=== PATIENT | female | born 1985 | race Caucasian/White ===

== ENCOUNTER 2017-01-04 19:15 | Emergency (ER) | payer OTHER ==
[2017-01-04] MEDS ORDERED: MORPHINE SULFATE 10 MG/ML INJ IV ONE (19:34)
[2017-01-04] MEDS ORDERED: ONDANSETRON HCL INJ/PF 4 MG/2 ML SDV IV ONE (19:34)
--- NOTE | 2017-01-04 19:41 | ER Document Report ---
ED GI/ - General Chief Complaint: Abdominal Pain Stated Complaint: ABDOMINAL PAIN Mode of Arrival: Medic Information source: Patient - HPI Patient complains to provider of: Abdominal pain Quality of pain: Sharp Severity at maximum: Severe Severity in ED: Moderate Location: Epigastric Vaginal bleeding (Compared to normal period): None Associated symptoms: Radiates to back, Sweaty. denies: Blood in stool, Chest pain, Chills, Constipation, Diarrhea, Dizzy, Dysuria, Fever, Hematuria, Nausea, Shortness of breath, Syncope, Urinary hesitancy, Urinary frequency, Urinary retention, Urinary urgency, Vaginal discharge, Vomiting Exacerbated by: Denies Relieved by: Denies Notes: 01/04/17 19:37 THE PT HAS A HX OF CHOLEYCYSTECTOMY AND GASTRIC BYPASS. SHE IS ON DEPO AND HAS NOT HAD A MENSES FOR 3 MONTHS. SHE STATES THAT SHE HAD SUDDEN ONSET EPIGASTRIC PAIN JUST PRIOR TO ARRIVAL. NO CP/SOB. SHE STATES THAT THE PAIN HAS IMPROVED NOW , BUT IS STILL PRESENT. THE PAIN IS IN HER EPIGASTRIC AREA AND RADIATES INTO HER BACK. NO URINARY SYMPTOMS. NO FEVER, NO N/V/D, NO VAGINAL BLEEDING OR D/C. SHE DENIES A HX OF HTN, HIGH CHOLESTEROL, DM, CAD, DRUG USE, FAMILY HX OF CAD AT A YOUNG AGE. SHE HAS A HX OF HEMOCHROMOTOSIS. SHE IS A SMOKER. SHE DENIES N/T , WEAKNESS. SHE HAS NO OTHER COMPLAINTS AT THIS TIME. - Related Data Allergies/Adverse Reactions: pseudoephedrine HCl [From Sudafed] Allergy (Verified 02/26/13 08:30) Past Medical History - Social History Smoking Status: Unknown if Ever Smoked Family History: Reviewed & Not Pertinent Renal/ Medical History: Reports: Hx Kidney Stones Infectious Medical History: Denies: Hx MRSA Past Surgical History: Reports: Hx Cholecystectomy, Hx Gastric Bypass Surgery - Immunizations Immunizations up to date: Yes Hx Diphtheria, Pertussis, Tetanus Vaccination: No - 11/19/12 Review of Systems - Review of Systems -: Yes All other systems reviewed and negative Physical Exam - General General appearance: Appears well, Alert In distress: None - HEENT Head: Normocephalic Eyes: Normal Conjunctiva: Normal Ears: Normal Mucous membranes: Normal Neck: Normal. No: Meningismus - Respiratory Respiratory status: No respiratory distress Breath sounds: Normal. No: Rhonchi, Stridor, Wheezing - Cardiovascular Rhythm: Regular Heart sounds: Normal auscultation Murmur: No - Abdominal Inspection: Normal Distension: No distension Bowel sounds: Normal Tenderness: Tender - MILD IN THE EPIGASTRIC AREA. NO REBOUND OR GAURDING. Organomegaly: No organomegaly - Back Back: Normal. No: CVA tenderness - Extremities General upper extremity: Normal inspection, Nontender, Normal color, Normal ROM , Normal temperature General lower extremity: Normal inspection, Nontender, Normal color, Normal ROM , Normal temperature, Normal weight bearing. No: Fei's sign - Neurological Neuro grossly intact: Yes Cognition: Normal Orientation: AAOx4 [place] Coma Scale Eye Opening: Spontaneous [place] Coma Scale Verbal: Oriented [place] Coma Scale Motor: Obeys Commands [place] Coma Scale Total: 15 Speech: Normal Motor strength normal: LUE, RUE, LLE, RLE Sensory: Normal - Psychological Associated symptoms: Normal affect, Normal mood - Skin Skin Temperature: Warm Skin Moisture: Dry Skin Color: Normal Course - Re-evaluation Re-evalutation: 01/04/17 21:40 Patient's nontoxic. Stable vitals. Patient is resting comfortably at this time. Labs show an elevated WBC count no other significant acute abnormalities. CT shows a partial small bowel obstruction. The case was discussed with surgery who will come to the emergency department to evaluate the patient. 01/04/17 22:20 Dr Raphael evaluated the patient. Patient states that she is feeling significantly better at this time she continues to pass gas and is able to burp without difficulty. He believes that this is not a partial bowel obstruction and the patient is okay for discharge home at this time. Patient is comfortable with this. She'll be discharged home with instructions to return the emergency Department for worsening pain, persistent vomiting, high fever, or for any further concerns. The patient is noted to have elevated blood pressure during today's emergency department visit. The patient was informed of this finding. The patient was instructed that this may be related to pre-hypertension and requires further evaluation with a primary care provider. The patient has no hypertensive symptoms at this time. The patient's emergency department workup and current diagnosis were explained to the patient and or family. Follow-up instructions were provided. Medications if prescribed were discussed. Instructions for when to return to the emergency department including specific worrisome symptoms were discussed with the patient and/or family. - Laboratory Result Diagrams: 01/04/17 19:46 01/04/17 19:46 Laboratory results interpreted by me: 01/04/17 01/04/17 01/04/17 19:46 19:46 20:10 WBC 14.1 H Hgb 10.6 L Hct 33.7 L MCV 77 L MCH 24.3 L MCHC 31.5 L RDW 18.6 H Absolute Neutrophils 9.6 H Carbon Dioxide 20 L Glucose 130 H AST 37 H ALT 57 H Urine Ketones TRACE H Ur Leukocyte Esterase SMALL H - Diagnostic Test Radiology reviewed: Image reviewed, Reports reviewed - CT abdomen and pelvis with IV contrast shows partial small bowel disruption. - EKG Interpretation by Me EKG shows normal: Sinus rhythm, Ham[place], Intervals, QRS Complexes, ST-T Waves Rate: Normal When compared to previous EKG there are: No significant change Additional EKG results interpreted by me: 01/04/17 20:04 MINOR Q-WAVE IN INFERIOR LEADS, NO CHANGE FROM PRIOR EKG. LIKELY NORMAL VARIENT. Discharge - Discharge Clinical Impression: Abdominal pain Qualifiers: Abdominal location: epigastric Qualified Code(s): R10.13 - Epigastric pain Condition: Stable Disposition: HOME, SELF-CARE Instructions: Abdominal Pain ([facility]) Additional Instructions: Follow-up with your doctor at the next available appointment for recheck. Return to emergency Department for increased pain, high fever, persistent vomiting, or any further concerns. Your blood pressure was elevated during today's visit. Have this rechecked with your doctor. Referrals: FLORES PALENCIA MD [Primary Care Provider] - Follow up as needed INGRID STEWART MD [ACTIVE STAFF] - Follow up as needed
[2017-01-04 19:59] LABS: ABSOLUTE BASOPHILS # (AUTO) 0.1 10^3/uL (0.0-0.2); ABSOLUTE EOSINOPHILS # (AUTO) 0.2 10^3/uL (0.0-0.6); ABSOLUTE LYMPHOCYTES (AUTO) 3.3 10^3/uL (0.5-4.7); ABSOLUTE MONOCYTES (AUTO) 0.9 10^3/uL (0.1-1.4); ABSOLUTE NEUT (AUTO) 9.6 10^3/uL (1.7-8.2); BASOPHILS % (AUTO) 0.5 % (0-2); EOSINOPHILS % (AUTO) 1.4 % (0-6); HEMATOCRIT 33.7 % (36.0-47.0); HEMOGLOBIN 10.6 g/dL (12.0-15.5); HGB HCT DIFFERENCE -1.9; LYMPHOCYTES % (AUTO) 23.6 % (13-45); MEAN CORPUSCULAR HEMOGLOBIN 24.3 pg (27.0-33.4); MEAN CORPUSCULAR HGB CONC 31.5 g/dL (32.0-36.0); MEAN CORPUSCULAR VOLUME 77 fl (80-97); MONOCYTES % (AUTO) 6.5 % (3-13); RED BLOOD COUNT 4.36 10^6/uL (3.72-5.28); RED CELL DISTRIBUTION WIDTH 18.6 % (11.5-14.0); WHITE BLOOD COUNT 14.1 10^3/uL (4.0-10.5)
[2017-01-04 20:17] LABS: ALANINE AMINOTRANSFERASE 57 U/L (9-52); ALBUMIN 4.5 g/dL (3.5-5.0); ALKALINE PHOSPHATASE 95 U/L (38-126); ANION GAP 17 (5-19); ASPARTATE AMINO TRANSFERASE 37 U/L (14-36); BILIRUBIN,DIRECT 0.4 mg/dL (0.0-0.4); BILIRUBIN,TOTAL 0.7 mg/dL (0.2-1.3); BLOOD UREA NITROGEN 15 mg/dL (7-20); CARBON DIOXIDE 20 mmol/L (22-30); CHLORIDE 107 mmol/L (98-107); CREATININE RESULT 0.84 mg/dL (0.52-1.25); GLUCOSE 130 mg/dL (75-110); LIPASE 115.6 U/L (23-300); POTASSIUM 4.6 mmol/L (3.6-5.0); SODIUM 143.9 mmol/L (137-145); TOTAL PROTEIN 7.9 g/dL (6.3-8.2)
[2017-01-04] MEDS ORDERED: HYDROMORPHONE HCL INJ/PF 2 MG/ML AMPULE IV ONE (20:24)
[2017-01-04 20:40] LABS: BILIRUBIN,URINE NEGATIVE (NEGATIVE); CALCIUM OXALATE CRYSTALS,URINE TOO NUMEROUS TO CNT /HPF; GLUCOSE, URINE NEGATIVE (NEGATIVE); KETONES,URINE TRACE mg/dL (NEGATIVE); LEUKOCYTE ESTERASE,URINE SMALL (NEGATIVE); NITRITE,URINE NEGATIVE (NEGATIVE); PROTEIN,URINE NEGATIVE (NEGATIVE); URINE SPECIFIC GRAVITY 1.027; UROBILINOGEN,URINE NEGATIVE mg/dL (<2.0)
[2017-01-04 20:41] LABS: APPEARANCE,URINE SLIGHTLY-CLOUDY
[2017-01-04] MEDS ORDERED: NORMAL SALINE 1000 ML 1,000 ML IV ONE (21:37)
[2017-01-04 22:39] VITALS: BP 133/73
--- NOTE | 2017-01-04 22:40 | PDOC CONSULTATION ---
Consultation Consult Date: 01/04/17 Attending physician:: FRANKI ALCARAZ Consult reason:: Abdominal pain History of Present Illness Admission Date/PCP: FLORES PALENCIA MD History of Present Illness: BINH BLAND is a 31 year old female with right ground rescue [facility] complaining of acute onset abdominal pain. This started possibly 45 minutes after the patient was about 8 items. She denies nausea or vomiting. She was seen in emergency department where she was evaluated and had a CT scan of her abdomen and pelvis without oral contrast which showed possible small bowel obstruction. Subsequent to the bathroom, felt better, and is now in the emergency department after receiving some pain medication. Her past medical history significant for gastric bypass by Dr. Fahad Kennedy [facility] proximally 7 years ago. She has had no complications thereafter. Past Medical History Past Medical History: This is a history of B12 deficiency related to her bypass, obesity Infectious Medical History: Denies: Methicillin-Resistant Staph Aureus Past Surgical History Past Surgical History: Reports: Cholecystectomy, Gastric Bypass Surgery, Other - Gastric bypass by Kaleb Kennedy, 2009, [facility], [place] Social History Smoking Status: Unknown if Ever Smoked Frequency of Alcohol Use: None Hx Recreational Drug Use: No Hx Prescription Drug Abuse: No Family History Family History: Reviewed & Not Pertinent Parental Family History Reviewed: Yes Children Family History Reviewed: Yes Sibling(s) Family History Reviewed.: Yes Medication/Allergy Home Medications: Medroxyprogesterone Acetate [Depo-Provera] 150 mg IM 01/16/13 Chlorhexidine Gluconate [Hibiclens] 120 ml TP JOHN #30 liquid 02/26/13 Oxycodone HCl/Acetaminophen [Percocet 5-325 mg Tablet] 1 tab PO QID #15 tablet 02/26/13 Sulfamethoxazole/Trimethoprim [Septra-Ds Tablet] 2 tab PO BID #20 tablet Ondansetron [Zofran Odt 4 mg Tablet] 1 tab PO Q6H #15 tab.rapdis 02/28/13 Allergies/Adverse Reactions: pseudoephedrine HCl [From Sudafed] Allergy (Verified 02/26/13 08:30) Review of Systems Constitutional: ABSENT: chills, fever(s), headache(s), weight gain, weight loss Ears: ABSENT: hearing changes Cardiovascular: ABSENT: chest pain, dyspnea on exertion, edema, orthropnea, palpitations Respiratory: ABSENT: cough, hemoptysis Genitourinary: ABSENT: dysuria, hematuria Neurological: ABSENT: abnormal gait, abnormal speech, confusion, dizziness, focal weakness, syncope Psychiatric: ABSENT: anxiety, depression, homidical ideation, suicidal ideation Endocrine: ABSENT: cold intolerance, heat intolerance, polydipsia, polyuria Hematologic/Lymphatic: ABSENT: easy bleeding, easy bruising Physical Exam General appearance: PRESENT: no acute distress Head exam: PRESENT: normocephalic Eye exam: PRESENT: EOMI Ear exam: PRESENT: normal external ear exam, TM's normal bilaterally Neck exam: PRESENT: full ROM Respiratory exam: PRESENT: clear to auscultation temitope Cardiovascular exam: PRESENT: RRR Pulses: PRESENT: normal radial pulses GI/Abdominal exam: PRESENT: other - Operative scars consistent with previous surgery. No peritoneal signs no rigidity no tenderness no masses no hernias Extremities exam: PRESENT: full ROM Neurological exam: PRESENT: alert, oriented to time, oriented to situation Psychiatric exam: PRESENT: appropriate affect Skin exam: PRESENT: dry Results Laboratory Results: 01/04/17 19:46 01/04/17 19:46 01/04/17 01/04/17 01/04/17 19:46 19:46 20:10 WBC 14.1 H RBC 4.36 Hgb 10.6 L Hct 33.7 L MCV 77 L MCH 24.3 L MCHC 31.5 L RDW 18.6 H Plt Count 338 Seg Neutrophils % 68.0 Lymphocytes % 23.6 Monocytes % 6.5 Eosinophils % 1.4 Basophils % 0.5 Absolute Neutrophils 9.6 H Absolute Lymphocytes 3.3 Absolute Monocytes 0.9 Absolute Eosinophils 0.2 Absolute Basophils 0.1 Sodium 143.9 Potassium 4.6 Chloride 107 Carbon Dioxide 20 L Anion Gap 17 BUN 15 Creatinine 0.84 Est GFR ( Amer) > 60 Est GFR (Non-Af Amer) > 60 Glucose 130 H Calcium 10.0 Total Bilirubin 0.7 AST 37 H ALT 57 H Alkaline Phosphatase 95 Total Protein 7.9 Albumin 4.5 Lipase 115.6 Urine Color YELLOW Urine Appearance SLIGHTLY-CLOUDY Urine pH 5.0 Ur Specific [place] 1.027 Urine Protein NEGATIVE Urine Glucose (UA) NEGATIVE Urine Ketones TRACE H Urine Blood NEGATIVE Urine Nitrite NEGATIVE Ur Leukocyte Esterase SMALL H Urine WBC (Auto) 4 Urine RBC (Auto) 1 Impressions: Abdomen/Pelvis CT 01/04/17 19:34 IMPRESSION: There appears to be a partial small bowel obstruction involving the distal jejunum/ proximal ileum with transition zone in the pelvis. No etiology identified. Surgeons addendum-this is a limited study due to the absence of oral contrast. There is significant air in the colon. There is no free air or phlegmon Assessment & Plan - Diagnosis (1) Abdominal pain Qualifiers: Abdominal location: epigastric Qualified Code(s): R10.13 - Epigastric pain Plan: 1. Patient's abdominal pain was acute onset, after eating a big meal earlier today. Given her history of gastric bypass, Curt-en-Y reconstruction, along with her subsequent clinical improvement, suspect she had simply challenged her gastrointestinal tract bY over eating. She feels better now and she certainly does not look sick. 2. Mild abnormality in elevated white blood cell count, and anemia likely chronic. 3. Recommendation is to provide patient with IV fluids and reassess her. If she continues to have difficulty, then repeating CT scan with oral contrast would be appropriate. Conversely if she continues to improve clinically she can be discharged from the emergency department. - Time Time Spent: 50 to 70 Minutes Critical Time spent with patient: Less than 15 minutes Medications reviewed and adjusted accordingly: Yes Anticipated discharge: Home
--- NOTE | 2017-01-05 08:43 | EKG REPORT ---
SEVERITY:- BORDERLINE ECG - SINUS RHYTHM INFERIOR Q WAVES, PROBABLY NORMAL VARIATION : Confirmed by: Harish Hill 05-Jan-2017 08:42:54
== END 2017-01-04 22:40 | disposition home or self-care (01) ==
LOC: ER 19:15
DX: R10.13 Epigastric pain (principal); R61 Generalized hyperhidrosis; D72.829 Elevated white blood cell count, unspecified; Z98.84 Bariatric surgery status; Z90.49 Acquired absence of other specified parts of digestive tract; Z79.3 Long term (current) use of hormonal contraceptives; Z82.49 Family history of ischemic heart disease and other diseases of the circulatory system; Z86.39 Personal history of other endocrine, nutritional and metabolic disease; Z88.8 Allergy status to other drugs, medicaments and biological substances; Z87.442 Personal history of urinary calculi; R03.0 Elevated blood-pressure reading, without diagnosis of hypertension
CPT/HCPCS: 93005; 99285; 96361; 96374; 96375; 36415; 83690; 85025; 81025; 80053; 81001; 74177; 93010; J2270; J1170; J2405; J7030

== ENCOUNTER → 2018-07-18 | Outpatient (CLI) | payer OTHER ==
[2018-07-18 11:49] LABS: T.VAGINALIS (WET MOUNT) NO TRICHOMONAS SEEN; WBCS (WET MOUNT) 1+ WBCS SEEN; YEAST (WET MOUNT) NO YEAST SEEN
== END ==
LOC: LAB 11:11
PROVIDERS: ATTEND Nurse Practitioner Family
DX: N89.8 Other specified noninflammatory disorders of vagina (principal); R30.0 Dysuria
CPT/HCPCS: 87210

== ENCOUNTER → 2018-12-23 | Outpatient (CLI) | payer BC, OTHER ==
--- NOTE | 2018-12-23 10:24 | WOMENS IMAGING REPORT ---
EXAM DESCRIPTION: BILAT DIAGNOSTIC MAMMO W/CAD; U/S BREAST UNILAT LIMITED COMPLETED DATE/TIME: 12/23/2018 9:12 am; 12/23/2018 9:52 am REASON FOR STUDY: N64.52 NIPPLE DISCHARGE; LT BREAST DISCHARGE N64.52 NIPPLE DISCHARGE COMPARISON: None. TECHNIQUE: Standard craniocaudal and mediolateral oblique views of each breast recorded using digita l acquisition. True lateral view left breast. LIMITATIONS: None. FINDINGS: RIGHT BREAST MASSES: No suspicious masses. CALCIFICATIONS: No new or suspicious calcifications. ARCHITECTURAL DISTORTION: None. DEVELOPING DENSITY: None. ASYMMETRY: None noted. OTHER: No other significant findings. LEFT BREAST MASSES: No suspicious masses. CALCIFICATIONS: No new or suspicious calcifications. ARCHITECTURAL DISTORTION: None. DEVELOPING DENSITY: None. ASYMMETRY: None noted. OTHER: No other significant finding. Read with the assistance of CAD: [facility] Cenova Version 1.3 .[facility] - R2 Cenova Version 2.1 .[facility] Imaging - R2 Cenova Version 2.4 .[facility] - R2 Cenova Version 2.4 .[facility] - R2 Outreach Librarian Version 9.2 Ultrasound of the left breast demonstrates no evidence of dilated ducts or suspicious mass. Subareol ar hypoechoic 5 x 6 x 2 mm nodule with echogenic hilum 3 o'clock consistent with intramammary lymph n ode. No internal flow on color Doppler. IMPRESSION: No evidence of malignancy. BREAST DENSITY: b. There are scattered areas of fibroglandular density. BIRAD: 2 Benign findings. RECOMMENDATION: RECOMMENDED FOLLOW UP: Clinical followup any nipple discharge. SPECIFIC INTERVENTION/IMAGING/CONSULTATION RECOMMENDED:No additional intervention/ imaging/consultati on needed at this time. COMMUNICATION:The imaging findings were not discussed with the patient. Her referring provider has be en notified of the findings. COMMENT: The patient has been notified of the results by letter per SA requirements. Additional no tification policies are in place for contacting patient with suspicious or incomplete findings. Quality ID #[id number]: The [employer] recommends an annual screening mammogram for women aged 40 years or over. This facility utilizes a reminder system to ensure that all patients receive reminder letters, and/or direct phone calls for appointments. This includes reminders for routine scr eening mammograms, diagnostic mammograms, or other Breast Imaging Interventions when appropriate. Th is patient will be placed in the appropriate reminder system. The [employer] (ACR) has developed recommendations for screening MRI of the breast s in certain patient populations, to be used in conjunction with mammography. Breast MRI surveillanc e may be appropriate for women with more than 20% lifetime risk of developing breast cancer as deter mined by genetic testing, significant family history of the disease, or history of mantle radiation f or Hodgkins Disease. ACR Practice Guidelines 2008. TECHNICAL DOCUMENTATION: FINDING NUMBER: (1) ASSESSMENT: (1) JOB ID: [id number] [employer]- All Rights Reserved Reading location - IP/workstation name: [email or web address]
--- NOTE | 2018-12-23 10:24 | WOMENS IMAGING REPORT ---
EXAM DESCRIPTION: BILAT DIAGNOSTIC MAMMO W/CAD; U/S BREAST UNILAT LIMITED COMPLETED DATE/TIME: 12/23/2018 9:12 am; 12/23/2018 9:52 am REASON FOR STUDY: N64.52 NIPPLE DISCHARGE; LT BREAST DISCHARGE N64.52 NIPPLE DISCHARGE COMPARISON: None. TECHNIQUE: Standard craniocaudal and mediolateral oblique views of each breast recorded using digita l acquisition. True lateral view left breast. LIMITATIONS: None. FINDINGS: RIGHT BREAST MASSES: No suspicious masses. CALCIFICATIONS: No new or suspicious calcifications. ARCHITECTURAL DISTORTION: None. DEVELOPING DENSITY: None. ASYMMETRY: None noted. OTHER: No other significant findings. LEFT BREAST MASSES: No suspicious masses. CALCIFICATIONS: No new or suspicious calcifications. ARCHITECTURAL DISTORTION: None. DEVELOPING DENSITY: None. ASYMMETRY: None noted. OTHER: No other significant finding. Read with the assistance of CAD: .[facility] - R[facility] Cenova Version 1.3 .[facility] Imaging - R2 Cenova Version 2.1 .[facility] Imaging - R2 Cenova Version 2.4 .[facility] - R2 Cenova Version 2.4 .[facility] - R2 Tax Manager Cpa Version 9.2 Ultrasound of the left breast demonstrates no evidence of dilated ducts or suspicious mass. Subareol ar hypoechoic 5 x 6 x 2 mm nodule with echogenic hilum 3 o'clock consistent with intramammary lymph n ode. No internal flow on color Doppler. IMPRESSION: No evidence of malignancy. BREAST DENSITY: b. There are scattered areas of fibroglandular density. BIRAD: 2 Benign findings. RECOMMENDATION: RECOMMENDED FOLLOW UP: Clinical followup any nipple discharge. SPECIFIC INTERVENTION/IMAGING/CONSULTATION RECOMMENDED:No additional intervention/ imaging/consultati on needed at this time. COMMUNICATION:The imaging findings were not discussed with the patient. Her referring provider has be en notified of the findings. COMMENT: The patient has been notified of the results by letter per SA requirements. Additional no tification policies are in place for contacting patient with suspicious or incomplete findings. Quality ID #[id number]: The [employer] recommends an annual screening mammogram for women aged 40 years or over. This facility utilizes a reminder system to ensure that all patients receive reminder letters, and/or direct phone calls for appointments. This includes reminders for routine scr eening mammograms, diagnostic mammograms, or other Breast Imaging Interventions when appropriate. Th is patient will be placed in the appropriate reminder system. The [employer] (ACR) has developed recommendations for screening MRI of the breast s in certain patient populations, to be used in conjunction with mammography. Breast MRI surveillanc e may be appropriate for women with more than 20% lifetime risk of developing breast cancer as deter mined by genetic testing, significant family history of the disease, or history of mantle radiation f or Hodgkins Disease. ACR Practice Guidelines 2008. TECHNICAL DOCUMENTATION: FINDING NUMBER: (1) ASSESSMENT: (1) JOB ID: [id number] [employer]- All Rights Reserved Reading location - IP/workstation name: [email or web address]
== END ==
LOC: WI 08:41
PROVIDERS: ATTEND Nurse Practitioner Family
DX: N64.52 Nipple discharge (principal)
CPT/HCPCS: 76642; 77066

== ENCOUNTER → 2019-07-15 | Outpatient (CLI) | payer SELFPAY ==
[2019-07-15 16:20] LABS: BACTERIA (WET MOUNT) 3+ BACTERIA SEEN; EPITHELIALS (WET MOUNT) 4+ EPITHELIALS SEEN; RBCS (WET MOUNT) RARE RBCS SEEN; T.VAGINALIS (WET MOUNT) NO TRICHOMONAS SEEN; WBCS (WET MOUNT) 2+ WBCS SEEN; YEAST (WET MOUNT) NO YEAST SEEN
[2019-07-15 17:47] LABS: CHLAM PCR NOT DETECTED (NOT DETECT)
== END ==
LOC: LAB 16:10
PROVIDERS: ATTEND Nurse Practitioner Family
DX: N76.0 Acute vaginitis (principal); R30.0 Dysuria
CPT/HCPCS: 87086; 87210; 87491; 87591

== ENCOUNTER 2020-01-19 10:29 | Emergency (ER) | payer BC, OTHER ==
--- NOTE | 2020-01-19 10:40 | ER Document Report ---
ED Medical Screen (RME) - General Chief Complaint: Abdominal Pain Stated Complaint: ABDOMINAL PAIN Time Seen by Provider: 01/19/20 10:33 Primary Care Provider: AUNG PATTON FNP-BC [Primary Care Provider] - Follow up as needed TRAVEL OUTSIDE OF THE [place] IN LAST 30 DAYS: No - HPI Notes: 01/19/20 10:38 34-year-old female presents emergency room today with complaints of left lower quadrant abdominal pain that started after eating yesterday. Was seen by her PCP this morning, advised to come to the emergency room for possible diverticulitis. History of gastric bypass in 2009 as well as having a partial hysterectomy in June 2019. Patient did have a bowel movement today that was normal for her. Denies any fevers chills, nausea vomiting diarrhea. No qodi-naj-huicgsy medications have been tried. I have greeted and performed a rapid initial assessment of this patient. A comprehensive ED assessment and evaluation of the patient, analysis of test results and completion of the medical decision making process will be conducted by additional ED providers. PHYSICAL EXAMINATION: GENERAL: Well-appearing, well-nourished and in no acute distress. HEAD: Atraumatic, normocephalic. EYES: Pupils equal round extraocular movements intact, conjunctiva are normal. NECK: Normal range of motion CV: s1, s2 regular LUNGS: No respiratory distress abd: LLQ abd pain, no cva tenderness appreciated bilaterally - Related Data Allergies/Adverse Reactions: pseudoephedrine HCl [From Sudafed] Allergy (Verified 02/26/13 08:30) Past Medical History Renal/ Medical History: Reports: Hx Kidney Stones Infectious Medical History: Denies: Hx MRSA Past Surgical History: Reports: Hx Cholecystectomy, Hx Gastric Bypass Surgery, Other - Gastric bypass by Kaleb Kennedy, 2010, [facility], [place] - Immunizations Immunizations up to date: Yes Hx Diphtheria, Pertussis, Tetanus Vaccination: No - 11/19/12 Physical Exam - Vital signs Vitals: Temp Pulse Resp BP Pulse Ox 97.8 F 81 18 154/82 H 99 01/19/20 10:32 01/19/20 10:32 01/19/20 10:32 01/19/20 10:32 01/19/20 10:32 Course - Vital Signs Vital signs: Temp Pulse Resp BP Pulse Ox 97.8 F 81 18 154/82 H 99 01/19/20 10:32 01/19/20 10:32 01/19/20 10:32 01/19/20 10:32 01/19/20 10:32 Doctor's Discharge - Discharge Referrals: AUNG PATTON [employer] INSPECTOR-BC [Primary Care Provider] - Follow up as needed
[2020-01-19 11:07] LABS: APPEARANCE,URINE CLEAR; BILIRUBIN,URINE NEGATIVE (NEGATIVE); COLOR,URINE YELLOW; GLUCOSE, URINE NEGATIVE (NEGATIVE); KETONES,URINE NEGATIVE (NEGATIVE); LEUKOCYTE ESTERASE,URINE NEGATIVE (NEGATIVE); NITRITE,URINE NEGATIVE (NEGATIVE); PROTEIN,URINE NEGATIVE (NEGATIVE); URINE SPECIFIC GRAVITY 1.004; UROBILINOGEN,URINE NEGATIVE mg/dL (<2.0)
[2020-01-19 11:14] LABS: ABSOLUTE EOSINOPHILS # (AUTO) 0.1 10^3/uL (0.0-0.6); ABSOLUTE LYMPHOCYTES (AUTO) 1.7 10^3/uL (0.5-4.7); ABSOLUTE MONOCYTES (AUTO) 0.6 10^3/uL (0.1-1.4); ABSOLUTE NEUT (AUTO) 4.2 10^3/uL (1.7-8.2); BASOPHILS % (AUTO) 0.5 % (0-2); EOSINOPHILS % (AUTO) 0.8 % (0-6); HEMATOCRIT 35.3 % (36.0-47.0); HEMOGLOBIN 11.7 g/dL (12.0-15.5); LYMPHOCYTES % (AUTO) 25.4 % (13-45); MEAN CORPUSCULAR HEMOGLOBIN 26.2 pg (27.0-33.4); MEAN CORPUSCULAR HGB CONC 33.3 g/dL (32.0-36.0); MEAN CORPUSCULAR VOLUME 79 fl (80-97); MONOCYTES % (AUTO) 9.6 % (3-13); PLATELET COUNT 290 10^3/uL (150-450); RED BLOOD COUNT 4.48 10^6/uL (3.72-5.28); RED CELL DISTRIBUTION WIDTH 21.1 % (11.5-14.0); SEGMENTED NEUTROPHILS % (AUTO) 63.7 % (42-78); TOTAL CELLS COUNTED % (AUTO) 100 %; WHITE BLOOD COUNT 6.6 10^3/uL (4.0-10.5)
--- NOTE | 2020-01-19 11:28 | ER Document Report ---
ED General - General Chief Complaint: Abdominal Pain Stated Complaint: ABDOMINAL PAIN Time Seen by Provider: 01/19/20 10:33 Primary Care Provider: AUNG PATTON FNP-BC [NURSE PRACTITIONER] - Follow up as needed TRAVEL OUTSIDE OF THE [place] IN LAST 30 DAYS: No - HPI Notes: Patient is a 34-year-old female who presents emergency department for evaluation of left-sided abdominal pain. She states that started about 2:00 yesterday. At first she thought it was just trapped gas. She states that her pain was intermittent since then. Sometimes it was relieved by flatus, otherwise it was helped with Tums. She states her pain persisted this morning. She did a telemedicine visit, she was advised that she could have diverticulitis, so she presents to the ER for further evaluation. She denies any fevers or chills. No nausea or vomiting. She has frequent loose stools, as a result of both her gastric bypass as well as her cholecystectomy, but she had a bowel movement this morning that was normal for her. She states she urinates frequently at baseline, but denies any dysuria or gross hematuria. - Related Data Allergies/Adverse Reactions: pseudoephedrine HCl [From Sudafed] Allergy (Verified 02/26/13 08:30) Home Medications: Probiotic Past Medical History - General Information source: Patient - Social History Smoking Status: Current Every Day Smoker Family History: Reviewed & Not Pertinent Patient has homicidal ideation: No Renal/ Medical History: Reports: Hx Kidney Stones Infectious Medical History: Denies: Hx MRSA Past Surgical History: Reports: Hx Cholecystectomy, Hx Gastric Bypass Surgery, Hx Gynecologic Surgery - fallopian tubes and ovaries removed, Hx Hysterectomy, Other - Gastric bypass by Kaleb Kennedy, 2010, [facility], [place] - Immunizations Immunizations up to date: Yes Hx Diphtheria, Pertussis, Tetanus Vaccination: No - 11/19/12 Review of Systems - Review of Systems Gastrointestinal: See HPI -: Yes All other systems reviewed and negative Physical Exam - Vital signs Vitals: Temp Pulse Resp BP Pulse Ox 97.8 F 81 18 154/82 H 99 01/19/20 10:32 01/19/20 10:32 01/19/20 10:32 01/19/20 10:32 01/19/20 10:32 - Notes Notes: Vital signs reviewed, please refer to chart. Head is normocephalic, atraumatic. Pupils equal round, reactive to light. Neck is supple without meningismus. Heart is regular rate and rhythm. Lungs are clear to auscultation bilaterally. Abdomen is soft, nontender, normoactive bowel sounds throughout. Extremities without cyanosis, clubbing. Posterior calves are nontender. Peripheral pulses are equal. Skin is warm and dry. Patient is awake, alert, neurological exam is nonfocal. Course - Re-evaluation Re-evalutation: 01/19/20 11:27 Patient presents to the emergency department for evaluation. Laboratory investigations are ordered. The patient has minimal pain at this time. I do not believe a contrasted scan is indicated in this patient who is morbidly obese, with history of kidney stones as well. Contrasted scan was canceled, non contrast scan ordered. Patient is stable at this time. Awaiting labs and imaging results. 01/19/20 12:53 Serial abdominal exams are benign. Patient with normal CT, normal blood work, normal urine. She is stable here. I do not have a clear etiology for her pain, but encouraged her to follow-up closely with primary care. She was amenable to this plan was discharged. - Vital Signs Vital signs: Temp Pulse Resp BP Pulse Ox 97.8 F 81 17 141/85 H 100 01/19/20 10:33 01/19/20 10:32 01/19/20 12:01 01/19/20 12:00 01/19/20 12:01 - Laboratory Result Diagrams: 01/19/20 11:01 01/19/20 11:01 Laboratory results interpreted by me: 01/19/20 01/19/20 11:01 11:01 Hgb 11.7 L Hct 35.3 L MCV 79 L MCH 26.2 L RDW 21.1 H Sodium 135.1 L BUN 6 L AST 41 H - Diagnostic Test Radiology reviewed: Reports reviewed Radiology results interpreted by me: 01/19/20 12:54 Abdomen/Pelvis CT 01/19/20 11:13 IMPRESSION: NO SIGNIFICANT OR ACUTE PROCESS IN THE ABDOMEN OR PELVIS. Discharge - Discharge Clinical Impression: Left-sided abdominal pain of unknown etiology Condition: Stable Disposition: HOME, SELF-CARE Instructions: Abdominal Pain ([facility]) Additional Instructions: No clear cause was identified for your abdominal pain today. Rest. Follow-up with your primary care provider in the next 48 hours. If you develop worsening or new concerning symptoms of any sort, return immediately to the emergency department for reevaluation. Referrals: AUNG PATTON FNP-BC [NURSE PRACTITIONER] - Follow up as needed
[2020-01-19 11:37] LABS: ALBUMIN 4.4 g/dL (3.5-5.0); ALKALINE PHOSPHATASE 110 U/L (38-126); ANION GAP 8 (5-19); ASPARTATE AMINO TRANSFERASE 41 U/L (14-36); BILIRUBIN,DIRECT 0.1 mg/dL (0.0-0.4); BILIRUBIN,TOTAL 0.9 mg/dL (0.2-1.3); BLOOD UREA NITROGEN 6 mg/dL (7-20); CALCIUM 9.4 mg/dL (8.4-10.2); CARBON DIOXIDE 23 mmol/L (22-30); CHLORIDE 104 mmol/L (98-107); GLUCOSE 107 mg/dL (75-110); POTASSIUM 3.8 mmol/L (3.6-5.0); TOTAL PROTEIN 7.8 g/dL (6.3-8.2)
--- NOTE | 2020-01-19 12:44 | RADIOLOGY REPORT (SQ) ---
EXAM DESCRIPTION: CT ABD/PELVIS NO ORAL OR IV IMAGES COMPLETED DATE/TIME: 01/19/2020 12:28 pm REASON FOR STUDY: Left-sided abdominal pain COMPARISON: None. TECHNIQUE: CT scan of the abdomen and pelvis performed without intravenous or oral contrast. Images reviewed with lung, soft tissue, and bone windows. Reconstructed coronal and sagittal MPR images revi ewed. All images stored on PACS. All CT scanners at this facility use dose modulation, iterative reconstruction, and/or weight based d osing when appropriate to reduce radiation dose to as low as reasonably achievable (ALARA). [facility]: Dose Right [facility]: CareDose [facility]: Dose Right [facility]: Teradose 4D [facility]: Hyperfair RADIATION DOSE: CT Rad equipment meets quality standard of care and radiation dose reduction techniq ues were employed. CTDIvol: 18.5 mGy. DLP: 1052 mGy-cm.mGy. LIMITATIONS: None. FINDINGS: LOWER CHEST: No significant findings. No nodules or infiltrates. NON-CONTRASTED LIVER, SPLEEN, ADRENALS: Evaluation limited by lack of IV contrast. No identified sign ificant masses. PANCREAS: No masses. No peripancreatic inflammatory changes. GALLBLADDER: Surgically absent. RIGHT KIDNEY AND URETER: No suspicious masses. Assessment limited by lack of IV contrast. No signif icant calcifications. No hydronephrosis or hydroureter. LEFT KIDNEY AND URETER: No suspicious masses. Assessment limited by lack of IV contrast. No signifi cant calcifications. No hydronephrosis or hydroureter. AORTA AND RETROPERITONEUM: No aneurysm. No retroperitoneal masses or adenopathy. BOWEL AND PERITONEAL CAVITY: Prior gastric bypass. No obvious masses or inflammatory changes. No michelle e fluid. APPENDIX: Normal. PELVIS, BLADDER, AND ABDOMINAL WALL:No abnormal masses. No free fluid. Bladder normal. BONES: No significant findings. OTHER: No other significant finding. IMPRESSION: NO SIGNIFICANT OR ACUTE PROCESS IN THE ABDOMEN OR PELVIS. COMMENT: Quality ID # [id number]: Final reports with documentation of one or more dose reduction techniques (e.g., Automated exposure control, adjustment of the mA and/or kV according to patient size, use of iterative reconstruction technique) TECHNICAL DOCUMENTATION: JOB ID: [id number] 2010 [employer]- All Rights Reserved Reading location - IP/workstation name: [email or web address]
[2020-01-19 13:05] VITALS: BP 158/87
== END 2020-01-19 13:06 | disposition home or self-care (01) ==
LOC: ER 10:29
DX: R10.9 Unspecified abdominal pain (principal); R19.7 Diarrhea, unspecified; F17.200 Nicotine dependence, unspecified, uncomplicated; Z90.49 Acquired absence of other specified parts of digestive tract; Z98.84 Bariatric surgery status; Z88.8 Allergy status to other drugs, medicaments and biological substances
CPT/HCPCS: 36415; 74176; 80053; 81001; 81025; 85025; 99284

== ENCOUNTER 2020-02-27 23:41 | Emergency (ER) | payer BC, OTHER ==
[2020-02-28 00:32] LABS: ABSOLUTE BASOPHILS # (AUTO) 0.1 10^3/uL (0.0-0.2); ABSOLUTE EOSINOPHILS # (AUTO) 0.1 10^3/uL (0.0-0.6); ABSOLUTE LYMPHOCYTES (AUTO) 1.6 10^3/uL (0.5-4.7); ABSOLUTE MONOCYTES (AUTO) 0.6 10^3/uL (0.1-1.4); ABSOLUTE NEUT (AUTO) 4.9 10^3/uL (1.7-8.2); BASOPHILS % (AUTO) 1.5 % (0-2); EOSINOPHILS % (AUTO) 1.2 % (0-6); HEMATOCRIT 32.2 % (36.0-47.0); HEMOGLOBIN 10.3 g/dL (12.0-15.5); LYMPHOCYTES % (AUTO) 21.6 % (13-45); MEAN CORPUSCULAR HGB CONC 31.9 g/dL (32.0-36.0); MEAN CORPUSCULAR VOLUME 82 fl (80-97); MONOCYTES % (AUTO) 8.1 % (3-13); PLATELET COUNT 307 10^3/uL (150-450); RED BLOOD COUNT 3.95 10^6/uL (3.72-5.28); RED CELL DISTRIBUTION WIDTH 19.8 % (11.5-14.0); SEGMENTED NEUTROPHILS % (AUTO) 67.6 % (42-78); TOTAL CELLS COUNTED % (AUTO) 100 %; WHITE BLOOD COUNT 7.2 10^3/uL (4.0-10.5)
[2020-02-28] MEDS ORDERED: LIDOCAINE 2% VISCOUS SOLN 15 ML UDCUP PO ONE (00:33)
[2020-02-28] MEDS ORDERED: ONDANSETRON HCL INJ/PF 4 MG/2 ML SDV IV ONE (00:33)
[2020-02-28] MEDS ORDERED: MAG HYDROX/AL HYDROX/SIMETH SUSP 30 ML UDCUP PO ONE (00:33)
[2020-02-28 00:44] LABS: ALBUMIN 3.9 g/dL (3.5-5.0); ALKALINE PHOSPHATASE 91 U/L (38-126); ASPARTATE AMINO TRANSFERASE 27 U/L (14-36); BILIRUBIN,TOTAL 0.5 mg/dL (0.2-1.3); BLOOD UREA NITROGEN 9 mg/dL (7-20); CALCIUM 9.7 mg/dL (8.4-10.2); CREATINE KINASE 86 U/L (30-135); GLUCOSE 109 mg/dL (75-110); POTASSIUM 3.8 mmol/L (3.6-5.0); TOTAL PROTEIN 6.9 g/dL (6.3-8.2)
--- NOTE | 2020-02-28 00:47 | RADIOLOGY REPORT (SQ) ---
AP Portable chest: 02/27/2020 11:46 PM CDT History: 34-year old patient with chest pain. Comparison: None available Findings: The cardiomediastinal silhouette is normal in size. No pneumothorax is seen. No acute airspace opacities are seen. No discrete pleural effusion is apparent. Impression: No acute airspace opacities are seen.
[2020-02-28 00:49] LABS: CARBON DIOXIDE 27 mmol/L (22-30); CHLORIDE 106 mmol/L (98-107)
[2020-02-28 00:50] LABS: ANION GAP 3 (5-19)
[2020-02-28 00:53] LABS: TROPONIN I < 0.012 ng/mL
--- NOTE | 2020-02-28 00:57 | ER Document Report ---
ED Cardiac - General Chief Complaint: Chest Pressure Stated Complaint: HEART RACING Time Seen by Provider: 02/28/20 00:17 Primary Care Provider: FLORES PALENCIA MD [Primary Care Provider] - Follow up in 3-5 days Notes: Patient is a 34-year-old female who presents to the emergency department with a chief complaint of her heart racing. Patient states that her symptoms started this morning (). Patient states that she started plexus for weight loss. Patient states that she thought it was indigestion and took ibuprofen and Tums, but did not have relief of her symptoms. Patient does have a history of a gastric bypass surgery. Although she has history of gastric bypass surgery, she is not on any antacid medication, besides tums as needed. Denies any melena stools. Denies any vomiting. Patient also has a second complaint of left ear pain, which she was seen by telemedicine and was given Ciprodex drops. Patient states that the pain is not any better. The pain radiates down her left neck. She is also complaining of right ear pain now. Denies any fever. TRAVEL OUTSIDE OF THE [place] IN LAST 30 DAYS: No - Related Data Allergies/Adverse Reactions: pseudoephedrine HCl [From ViVu] Allergy (Verified 02/26/13 08:30) Past Medical History - General Information source: Patient - Social History Smoking Status: Current Every Day Smoker Family History: Reviewed & Not Pertinent Patient has homicidal ideation: No - Past Medical History Cardiac Medical History: Reports: Hx Hypertension - Renal/ Medical History: Reports: Hx Kidney Stones Infectious Medical History: Denies: Hx MRSA Past Surgical History: Reports: Hx Abdominal Surgery - gastric bypass, Hx Cholecystectomy, Hx Gastric Bypass Surgery, Hx Gynecologic Surgery - fallopian tubes and ovaries removed, Hx Hysterectomy, Other - Gastric bypass by Kaleb Kennedy, 2010, [facility], [place] - Immunizations Immunizations up to date: Yes Hx Diphtheria, Pertussis, Tetanus Vaccination: No - 11/19/12 Review of Systems - Review of Systems Notes: REVIEW OF SYSTEMS: CONSTITUTIONAL : Denies recent illness. Denies recent unintentional weight loss. Denies fever, chills, or sweats. EENT: See HPI. CARDIOVASCULAR: See HPI. RESPIRATORY: Denies shortness of breath, cough, congestion, difficulty breathing, or wheezing. GASTROINTESTINAL: See HPI. GENITOURINARY: Denies difficulty urinating, burning, blood in urine, urgency or frequency. MUSCULOSKELETAL: Denies neck and back pain. Denies joint pain or swelling. SKIN: Denies rash, itchiness, or lesions HEMATOLOGIC : Denies easy bruising or bleeding. LYMPHATIC: Denies swollen, painful, enlarged glands. NEUROLOGICAL: Denies no numbness or tingling denies weakness. Denies headache. Denies altered mental status. Denies alteration in speech. PSYCHIATRIC: Denies stress, anxiety, alteration in sleep patterns, or depression. All other systems reviewed and negative. Physical Exam - Vital signs Vitals: Temp 98.5 F 02/27/20 23:42 - Notes Notes: PHYSICAL EXAMINATION: GENERAL: Appears obese, no acute distress. HEAD: Normocephalic, atraumatic. EYES: PERRL, conjunctiva normal, all extraocular movements intact, sclera nonicteric ENT: Moist mucous membranes. Purulence noted behind bilateral tympanic membranes. NECK: Supple, no noticeable swelling, redness, rash. Normal range of motion. LUNGS: Equal breath sounds bilaterally and clear to auscultation. No wheezes rales or rhonchi. CARDIOVASCULAR: S1-S2, regular rate, regular rhythm. Radial pulses 2+, normal. ABDOMEN: Normoactive bowel sounds. Soft, nontender, no guarding, no rebound tenderness, and no masses palpated. EXTREMITIES: Normal strength and range of motion, no pitting or edema. No cyanosis. NEUROLOGICAL: Moves all extremities upon command. Strength 5/5 in all ext remities. PSYCH: Normal mood, normal affect. SKIN: Warm, dry. No rash, lesions, ulcerations noted. Normal skin turgor. Course - Re-evaluation Re-evalutation: 02/28/20 01:28 Patient's chest x-ray is unremarkable. No pneumonia noted. Hematology shows an anemia, but this is most likely due to her gastric bypass and is chronic. TSH is 8.70. I discussed this with the patient. She agrees to have follow-up labs drawn by her primary care provider and possibly start on levothyroxine. Troponin is unremarkable. LFTs are also unremarkable. I also told her to stop taking her plexus. She has mucus noted behind bilateral tympanic membranes. No mastoid tenderness noted to suggest mastoiditis. She will be started on antibio tics. She is in agreement with this plan. I have a low suspicion for ACS, aortic dissection, or any life-threatening etiology at this time. Follow-up precautions were given. Verbal discharge instructions were given to the patient. They verbalized understanding. They are stable for discharge. - Vital Signs Vital signs: Temp Pulse Resp BP Pulse Ox 98.5 F 20 158/98 H 96 02/27/20 23:42 02/28/20 01:41 02/28/20 01:42 02/28/20 01:41 - Laboratory Result Diagrams: 02/28/20 00:03 02/28/20 00:03 Laboratory results interpreted by me: 02/28/20 02/28/20 02/28/20 00:03 00:03 00:03 Hgb 10.3 L Hct 32.2 L MCH 26.0 L MCHC 31.9 L RDW 19.8 H Sodium 136.3 L Anion Gap 3 L TSH 8.70 H Discharge - Discharge Clinical Impression: Elevated TSH, Palpitations GERD (gastroesophageal reflux disease) Qualifiers: Esophagitis presence: without esophagitis Qualified Code(s): K21.9 - Gastro- esophageal reflux disease without esophagitis Bilateral otitis media Qualifiers: Otitis media type: mucoid Chronicity: acute Qualified Code(s): H65.113 - Acute and subacute allergic otitis media (mucoid) (sanguinous) (serous), bilateral Condition: Stable Disposition: HOME, SELF-CARE Additional Instructions: You were seen today in the emergency department for a sort of palpitation feeling. Your work-up is reassuring. Please stop taking plexus. Your thyroid- stimulating hormone was elevated. Have your thyroid labs re-checked by her primary care provider. Start Pepcid for GERD. Prescriptions: Amoxicillin 1 tab PO TID #30 tab Fluconazole [Diflucan] 100 mg PO ASDIR PRN #2 tablet PRN Reason: Famotidine [Pepcid 20 mg Tablet] 20 mg PO BID #12 tablet Referrals: FLORES PALENCIA MD [Primary Care Provider] - Follow up in 3-5 days
[2020-02-28 00:59] LABS: FREE T3 4.9 pg/mL (2.77-5.27); FREE T4 (FREE THYROXINE) 1.21 ng/dL (0.78-2.19)
[2020-02-28 01:12] LABS: THYROID STIMULATING HORMONE 8.7 uIU/mL (0.47-4.68)
[2020-02-28] MEDS ORDERED: LIDOCAINE 2% VISCOUS SOLN 15 ML UDCUP ONE (01:35)
[2020-02-28 01:46] VITALS: BP 158/98
--- NOTE | 2020-02-28 09:33 | EKG REPORT ---
SEVERITY:- NORMAL ECG - SINUS RHYTHM : Confirmed by: Marian Torrez MD 28-Feb-2020 09:32:34
== END 2020-02-28 01:54 | disposition home or self-care (01) ==
LOC: ER 23:41
DX: R00.2 Palpitations (principal); K21.9 Gastro-esophageal reflux disease without esophagitis; R94.6 Abnormal results of thyroid function studies; H65.113 Acute and subacute allergic otitis media (mucoid) (sanguinous) (serous), bilateral; F17.200 Nicotine dependence, unspecified, uncomplicated; Z87.442 Personal history of urinary calculi; Z98.84 Bariatric surgery status
CPT/HCPCS: 93005; 99285; 96374; 36415; 84439; 82553; 82550; 84443; 85025; 80053; 84484; 84481; 71045; 93010; J2405